=== PATIENT | female | born 1995 | race Caucasian/White ===

== ENCOUNTER 2017-11-15 11:27 | Emergency (ER) | payer BC ==
--- NOTE | 2017-11-15 12:15 | RADIOLOGY REPORT (SQ) ---
EXAM DESCRIPTION: CT HEAD WITHOUT COMPLETED DATE/TIME: 11/15/2017 11:52 am REASON FOR STUDY: Possible TIA COMPARISON: None. TECHNIQUE: Axial images acquired through the brain without intravenous contrast. Images reviewed wi th bone, brain and subdural windows. Images stored on PACS. All CT scanners at this facility use dose modulation, iterative reconstruction, and/or weight based d osing when appropriate to reduce radiation dose to as low as reasonably achievable (ALARA). [facility]: Dose Right [facility]: CareDose [facility]: Dose Right [facility]: Teradose 4D [facility]: [employer] RADIATION DOSE: CT Rad equipment meets quality standard of care and radiation dose reduction techniq ues were employed. CTDIvol: 53.2 mGy. DLP: 964 mGy-cm. mGy. LIMITATIONS: None. FINDINGS: VENTRICLES: Normal size and contour. CEREBRUM: No masses. No hemorrhage. No midline shift. No evidence for acute infarction. Normal gra y/white matter differentiation. No areas of low density in the white matter. CEREBELLUM: No masses. No hemorrhage. No alteration of density. No evidence for acute infarction. EXTRAAXIAL SPACES: No fluid collections. No masses. ORBITS AND GLOBE: No intra- or extraconal masses. Normal contour of globe without masses. CALVARIUM: No fracture. PARANASAL SINUSES: No fluid or mucosal thickening. SOFT TISSUES: No mass or hematoma. OTHER: No other significant finding. IMPRESSION: NORMAL BRAIN CT WITHOUT CONTRAST. EVIDENCE OF ACUTE STROKE: NO. COMMENT: Quality ID # [id number]: Final reports with documentation of one or more dose reduction techniques (e.g., Automated exposure control, adjustment of the mA and/or kV according to patient size, use of iterative reconstruction technique) TECHNICAL DOCUMENTATION: JOB ID: [id number] [employer]- All Rights Reserved Reading location - IP/workstation name: [email or web address]
--- NOTE | 2017-11-15 12:30 | ER Document Report ---
ED General - General Chief Complaint: Headache Stated Complaint: HEADACHE,VOMITING,VISION PROBLEMS Time Seen by Provider: 11/15/17 11:52 Mode of Arrival: Ambulatory Information source: Patient, Parent Notes: 22-year-old female presents with complaints of headache blurry vision nausea vomiting numbness in her hands and face. Patient notes symptoms started when she got off a plane. She denies any fevers or chills notes blurry vision and other symptoms all resolved while she was in [place], then she got on the plane and came to [place] and upon landing again had similar episodes. Currently patient denies any such complaints states she has a mild headache. Her mother has a history of migraine headaches states this is similar to her own previous migraines, patient admits to significant history of anxiety and stress and they are having a wedding tomorrow TRAVEL OUTSIDE OF THE [place] IN LAST 30 DAYS: No - HPI Onset: Just prior to arrival Onset/Duration: Sudden Quality of pain: Achy Severity: Mild Pain Level: 1 Associated symptoms: Headache, Weakness, Other Exacerbated by: Denies Relieved by: Denies Similar symptoms previously: No Recently seen / treated by doctor: No - Related Data Allergies/Adverse Reactions: No Known Allergies Allergy (Unverified 11/15/17 11:31) Past Medical History - Social History Smoking Status: Current Every Day Smoker Cigarette use (# per day): Yes Chew tobacco use (# tins/day): No Smoking Education Provided: No Frequency of alcohol use: None Drug Abuse: None Family History: Reviewed & Not Pertinent Patient has suicidal ideation: No Patient has homicidal ideation: No Renal/ Medical History: Denies: Hx Peritoneal Dialysis Review of Systems - Review of Systems Notes: REVIEW OF SYSTEMS: CONSTITUTIONAL : Denies fever, chills, or sweats. Denies recent illness. EENT: Admits to blurry vision CARDIOVASCULAR: Denies chest pain. Denies palpitations or racing or irregular heart beat. Denies ankle edema. RESPIRATORY: Denies cough, cold, or chest congestion. Denies shortness of breath, difficulty breathing, or wheezing. GASTROINTESTINAL: Denies abdominal pain or distention. Denies nausea, vomiting , or diarrhea. Denies blood in vomitus, stools, or per rectum. Denies black, tarry stools. Denies constipation. GENITOURINARY: Denies difficulty urinating, painful urination, burning, frequency, blood in urine, or discharge. FEMALE GENITOURINARY: Denies vaginal bleeding, heavy or abnormal periods, irregular periods. Denies vaginal discharge or odor. MUSCULOSKELETAL: Denies back or neck pain or stiffness. Denies joint pain or swelling. SKIN: Denies rash, lesions or sores. HEMATOLOGIC : Denies easy bruising or bleeding. LYMPHATIC: Denies swollen, enlarged glands. NEUROLOGICAL: Admits to difficulty with speech headache PSYCHIATRIC: Admits to significant stress ALL OTHER SYSTEMS REVIEWED AND NEGATIVE. PHYSICAL EXAMINATION: GENERAL: Well-appearing, well-nourished and in no acute distress. HEAD: Atraumatic, normocephalic. EYES: Pupils equal round and reactive to light, extraocular movements intact, conjunctiva are normal. ENT: Nares patent, oropharynx clear without exudates. Moist mucous membranes. NECK: Normal range of motion, supple without lymphadenopathy LUNGS: Breath sounds clear to auscultation bilaterally and equal. No wheezes rales or rhonchi. HEART: Regular rate and rhythm without murmurs ABDOMEN: Soft, nontender, nondistended abdomen. No guarding, no rebound. No masses appreciated. Female : deferred Musculoskeletal: Normal range of motion, no pitting or edema. No cyanosis. NEUROLOGICAL: Cranial nerves grossly intact. Normal speech, normal gait. Normal sensory, motor exams PSYCH: Normal mood, normal affect. SKIN: Warm, Dry, normal turgor, no rashes or lesions noted. Dictation was performed using [employer] voice recognition software Physical Exam - Vital signs Vitals: Temp Pulse Resp BP Pulse Ox 98.0 F 108 H 24 H 131/79 H 99 11/15/17 11:32 11/15/17 11:32 11/15/17 11:32 11/15/17 11:32 11/15/17 11:32 Course - Re-evaluation Re-evalutation: 11/15/17 16:59 Patient's physical examination was completely benign, she was immediately taken for CT of the head which also was negative. I discussed concerns of acute CVA secondary to hemorrhagic bleed or stroke secondary to ischemic presentation and also the more probable causes of migraines and stress and anxiety, mother notes that she believes it is migraine the patient herself is leaning towards migraine versus anxiety as well. She was watched in the emergency department her symptoms all resolved, she overall looked well, she was given Tylenol for headache, they wish to be discharged because they have a rehearsal to go to Patient was offered lumbar puncture I spoke with the patient at length in regards to having a lumbar puncture performed. Pt was told the risks and benefits of the procedure in length. I do not believe the patient should leave without the LP being performed but the patient is alert oriented x4, understands the risks and benefits of staying and leaving including disability and . Pt understands that she can return at any time for further care and is more than welcome to do so. After performing a Medical Screening Examination, I estimate there is LOW risk for ACUTE GLAUCOMA, TEMPORAL ARTERITIS, MENINGITIS, INCRANIAL HEMORRHAGE, or ISCHEMIC STROKE thus I consider the discharge disposition reasonable. I have reevaluated this patient multiple times and no significant life threatening changes are noted. The patient and I have discussed the diagnosis and risks, and we agree with discharging home with close follow-up with the understanding that symptoms and presentations can change. We also discussed returning to the Emergency Department immediately if new or worsening symptoms occur. We have discussed the symptoms which are most concerning (e.g., changing or worsening symptoms, new numbness or weakness, vomiting, fever) that necessitate immediate return. - Vital Signs Vital signs: Temp Pulse Resp BP Pulse Ox 98.0 F 108 H 19 109/59 L 98 11/15/17 11:32 11/15/17 11:32 11/15/17 14:00 11/15/17 14:01 11/15/17 14:00 - Diagnostic Test Radiology reviewed: Image reviewed - CT head without contrast notes no acute abnormality, Reports reviewed Discharge - Discharge Clinical Impression: Headache Qualifiers: Headache type: unspecified Headache chronicity pattern: acute headache Intractability: not intractable Qualified Code(s): R51 - Headache Migraine headache with aura Qualifiers: Status migrainosus presence: without status migrainosus Intractability: not intractable Qualified Code(s): G43.109 - Migraine with aura, not intractable, without status migrainosus Condition: Stable Disposition: HOME, SELF-CARE Instructions: Migraine Headache ([facility]) Additional Instructions: Follow up with your physician tomorrow for further care or return to the ED IMMEDIATELY if symptoms worsen or new concerns occur. If you cannot afford to follow up with your primary care physician a list of low cost clinics have been provided at the end of your discharge papers as well. Prescriptions: Diphenhydramine HCl [Benadryl 50 mg Capsule] 1 cap PO Q6 PRN #14 capsule PRN Reason: Prochlorperazine Maleate [Compazine 10 mg Tablet] 10 mg PO Q8 #10 tablet
[2017-11-15] MEDS ORDERED: PROCHLORPERAZINE MALEATE 5 MG TABLET PO ONE (13:15)
[2017-11-15] MEDS ORDERED: DIPHENHYDRAMINE HCL 50 MG CAPSULE PO ONE (13:15)
[2017-11-15] MEDS ORDERED: ACETAMINOPHEN 325 MG TABLET PO ONE (13:49)
[2017-11-15 14:09] VITALS: BP 109/59
== END 2017-11-15 14:10 | disposition home or self-care (01) ==
LOC: ER 11:27
DX: G43.109 Migraine with aura, not intractable, without status migrainosus (principal); R53.1 Weakness; F17.210 Nicotine dependence, cigarettes, uncomplicated; Z82.0 Family history of epilepsy and other diseases of the nervous system
CPT/HCPCS: 70450; 99284